=== PATIENT | male | born 1970 | race Caucasian/White ===

== ENCOUNTER 2018-04-07 07:17 | Day surgery (SDC) | payer BC ==
[2018-04-02 11:47] VITALS: BMI 28.0
[2018-04-07] MEDS ORDERED: PROPOFOL 20 ML ONE ×2 (07:24)
[2018-04-07] MEDS ORDERED: LIDOCAINE HCL/PF 2% SDV 5ML VIAL ONE (07:29)
[2018-04-07 07:38] VITALS: TEMP 98
[2018-04-07 09:17] VITALS: BP 129/64; PULSE 76
== END 2018-04-07 09:40 | disposition home or self-care (01) ==
LOC: FASU-ENDO 07:17
PROVIDERS: ATTEND Internal Medicine Gastroenterology
PROC: 0DJD8ZZ Inspection of Lower Intestinal Tract, Via Natural or Artificial Opening Endoscopic (ICD-10-PCS; principal; 2018-04-07 08:35)
DX: Z12.11 Encounter for screening for malignant neoplasm of colon (principal); Z80.0 Family history of malignant neoplasm of digestive organs

== ENCOUNTER 2019-10-09 08:27 | Day surgery (SDC) | payer BC ==
[2019-10-06 11:48] VITALS: BMI 28.0
[2019-10-09] MEDS ORDERED: BUPIVACAINE HCL/PF 2.5 MG/ML - 30 ML VIAL IJ ONE (10:31)
[2019-10-09] MEDS ORDERED: LIDOCAINE HCL/PF 2% SDV 5ML VIAL ONE (10:33)
[2019-10-09] MEDS ORDERED: MIDAZOLAM HCL 2 MG/2 ML SINGLE DOSE VIAL ONE (10:33)
[2019-10-09] MEDS ORDERED: BUPIVACAINE HCL/PF 0.25% (2.5MG/ML) 10 ML VIAL IJ ONE ×2 (11:21→11:28)
[2019-10-09] MEDS ORDERED: PROMETHAZINE HCL 25 MG/1 ML VIAL IVPUSH PRN (11:50)
[2019-10-09] MEDS ORDERED: ONDANSETRON 4 MG/2 ML VIAL IVPUSH PRN (11:50)
[2019-10-09] MEDS ORDERED: oxyCODONE HCL 5 MG TABLET PO PRN ×2 (11:50)
--- NOTE | 2019-10-09 14:03 | OP ---
DATE OF OPERATION: 10/09/2019 Done at [facility] SURGEON: Scott Torrez MD FILLER SHAKER: JENNIFER Farfan PREOPERATIVE DIAGNOSES: 1. Right knee medial and lateral meniscal tear. 2. Right knee cartilage injury. 3. Right knee synovitis. POSTOPERATIVE DIAGNOSES: 1. Right knee medial and lateral meniscal tear. 2. Right knee cartilage injury. 3. Right knee synovitis. PROCEDURE: 1. Right knee arthroscopy with partial meniscectomy, medial and lateral meniscus, CPT code 34271. 2. Right knee arthroscopy with chondroplasty and abrasion-plasty, CPT code 83903. 3. Right knee arthroscopy with synovectomy, CPT code 45368. FINDINGS: 1. Medial meniscus anterior horn and body, minor. 2. Lateral meniscus posterior horn and anterior horn, minor. 3. Synovitis patellofemoral medial and lateral notch area with large suprapatellar synovitis. 4. Grade 3 cartilage flap 4 cm x 2 cm medial femoral condyle anteromedial portion. 5. Complete tear of the anterior cruciate ligament. 6. PCL intact. 7. Diffuse grade 1-2 changes lateral joint line most pronounced lateral tibial plateau diffusely. 8. 4 cm x 4 cm superior central patella grade 3-4 changes with 1-2 changes central medial patellofemoral trochlea. PROCEDURE: Informed consent was obtained. The patient came to the operating room, where the lower extremity was prepped and draped in a sterile fashion. A tourniquet was placed on the upper thigh, but not inflated. Using standard arthroscopic technique, a lateral incision and portal was made to allow for introduction of the camera into the suprapatellar bursa. This was then taken to the medial joint line, where under direct visualization, a medial incision and portal was made. Excessive synovium noted in the medial, lateral and patellofemoral and notch area was removed by an upbiter, shaver and Bovie cautery. This was found to bring in inflammatory tissue into the joint surface, a source of pain and dysfunction. Probing of the medial and lateral meniscus found tears, as described in the findings. These were removed with the upbiter and shaver and taken back to a stable rim. Grade 2 to 3 degenerative changes were treated with a chondroplasty, removing all flaking surfaces with low-setting Bovie along the periphery to prevent further flaking. Grade 4 changes, as noted, were treated with an abrasoplasty, creating a bleeding surface at the bone/cartilage interface. Aggressive debridement with shaver/odilia created bleeding surface. Micro fracture also done when indicated in findings. Remnants of the ACL were removed. The were extruding into the joint. These were debrided. Cartilage flap was removed as well. Patient was tested. Found to have overall indirect stability across the ACL, PCL complex. All areas of the knee were once again reexamined. The knee was then drained and a single suture was placed in all portals. A sterile dressing was placed and the patient was transferred to the recovery room without complication. The PA listed above was present and assisted at surgery. Their presence was absolutely medically necessary for the completion of the procedure. They helped hold the arthroscopy, pass instruments (and implants when indicated) and the procedure could not have been completed without their assistance. SCOTT TORREZ M.D. [id number]
[2019-10-09 14:15] VITALS: BP 127/77; PULSE 72; TEMP 98
--- NOTE | 2019-10-14 13:36 | PATH ---
Surgical Pathology Report Patient Name: ALBERTO LOPEZ [facility]. Rec. #: [id number] /Age/Gender: 1970 (Age: 49) / M Account: [id number] Location: [facility] Taken: 10/09/2019 Received: 10/09/2019 Reported: 10/14/2019 Physicians: Scott Feng M.D. Specimen(s) Received RIGHT KNEE SHAVINGS Clinical History Derangement right knee Final Diagnosis KNEE, RIGHT, ARTHROSCOPIC SHAVINGS: FIBROSYNOVIAL AND FIBROCOLLAGENOUS TISSUE. Electronically Signed Zenobia Haynes M.D. Gross Description Received in formalin, labeled "right knee shavings," is a 4.5 x 4.0 x 0.3 cm. aggregate of kumar-yellow soft tissue fragments. A technical account representative portion is submitted in one cassette. 10/12/2019 saudi10/12/2019
== END 2019-10-09 14:15 | disposition home or self-care (01) ==
LOC: FASU 08:27
PROVIDERS: ATTEND Orthopaedic Surgery
PROC: 0SBC4ZZ Excision of Right Knee Joint, Percutaneous Endoscopic Approach (ICD-10-PCS; 2019-10-09)
PROC: 0SBC4ZZ Excision of Right Knee Joint, Percutaneous Endoscopic Approach (ICD-10-PCS; 2019-10-09)
PROC: 0SBC4ZZ Excision of Right Knee Joint, Percutaneous Endoscopic Approach (ICD-10-PCS; principal; 2019-10-09 11:15)
DX: S83.241A Other tear of medial meniscus, current injury, right knee, initial encounter (principal); S83.281A Other tear of lateral meniscus, current injury, right knee, initial encounter; S83.8X1A Sprain of other specified parts of right knee, initial encounter; M65.861 Other synovitis and tenosynovitis, right lower leg; X58.XXXA Exposure to other specified factors, initial encounter; Y93.9 Activity, unspecified; Y92.9 Unspecified place or not applicable
CPT/HCPCS: 88304-TC; 94760

== ENCOUNTER 2022-08-10 08:43 | Day surgery (SDC) | payer BC ==
[2022-08-07 14:47] VITALS: BMI 28.0
[~2022-08-10 08:43] MED LIST: LACTATED RINGERS SOLUTION 1,000 ML IV SCH; ONDANSETRON 4 MG/2 ML VIAL IVPUSH PRN; PROMETHAZINE HCL 25 MG/1 ML VIAL IVPUSH PRN; oxyCODONE HCL 5 MG TABLET PO PRN
[2022-08-10] MEDS ORDERED: BUPIVACAINE HCL/PF 2.5 MG/ML - 30 ML VIAL IJ ONE (08:53)
[2022-08-10] MEDS ORDERED: MIDAZOLAM HCL 2 MG/2 ML SINGLE DOSE VIAL ONE (12:25)
[2022-08-10] MEDS ORDERED: PROPOFOL 20 ML ONE (12:25)
[2022-08-10] MEDS ORDERED: ONDANSETRON 4 MG/2 ML VIAL ONE (12:41)
[2022-08-10] MEDS ORDERED: LIDOCAINE HCL/PF 2% SDV 5ML VIAL ONE (12:41)
[2022-08-10] MEDS ORDERED: GLYCOPYRROLATE 0.2 MG/1 ML VIAL ONE (12:41)
[2022-08-10] MEDS ORDERED: KETOROLAC TROMETHAMINE 30 MG/1 ML VIAL ONE (12:41)
[2022-08-10] MEDS ORDERED: ceFAZolin SODIUM 1 GM VIAL ONE (12:41)
[2022-08-10] MEDS ORDERED: SODIUM CHLORIDE 0.9% P/F 10 ML VIAL IJ ONE (12:41)
[2022-08-10] MEDS ORDERED: DEXAMETHASONE SOD PHOSPHATE 4 MG/1 ML VIAL ONE (12:41)
[2022-08-10] MEDS ORDERED: ACETAMINOPHEN 1000 MG/100 ML BAG IVPB ONE (13:22)
[2022-08-10] MEDS ORDERED: ACETAMINOPHEN INJECTION 100 ML IVPB ONE (13:29)
[2022-08-10 14:03] VITALS: RESP 16
[2022-08-10 14:24] VITALS: TEMP 97.1
[2022-08-10 15:19] VITALS: BP 138/87; PULSE 68
== END 2022-08-10 15:15 | disposition home or self-care (01) ==
LOC: FASU 08:43
PROVIDERS: ATTEND Orthopaedic Surgery
PROC: 0SBD4ZZ Excision of Left Knee Joint, Percutaneous Endoscopic Approach (ICD-10-PCS; 2022-08-10)
PROC: 0SCD4ZZ Extirpation of Matter from Left Knee Joint, Percutaneous Endoscopic Approach (ICD-10-PCS; principal; 2022-08-10 12:52)
DX: S83.242A Other tear of medial meniscus, current injury, left knee, initial encounter (principal); S83.8X2A Sprain of other specified parts of left knee, initial encounter; M65.862 Other synovitis and tenosynovitis, left lower leg; X58.XXXA Exposure to other specified factors, initial encounter; Y93.9 Activity, unspecified; Y92.9 Unspecified place or not applicable
CPT/HCPCS: 94760